=== PATIENT | female | born 1960 | race American Indian/Alaskan Native ===

== ENCOUNTER 2017-02-13 10:49 | Outpatient (CLI) | payer OTHER ==
--- NOTE | 2017-02-13 11:42 | Mammography Report ---
BILATERAL MAMMOGRAM: FINDINGS: The breast tissue is heterogeneously dense, which could obscure detection of small masses (approximately 50%-75% glandular). No mass, distortion, suspicious calcification, or skin change is seen. No significant changes compared to prior studies in 2015 and 2016. CAD was utilized. IMPRESSION: Negative mammogram. There is no mammographic evidence of malignancy. RECOMMENDATION: Follow-up per ACS guidelines. BI-RADS CATEGORY: 1 = Negative ACR BI-RADS MAMMOGRAPHIC CODES: 0 = Needs additional imaging evaluation; 1 = Negative; 2 = Benign; 3 = Probably benign; 4 = Suspicious; 5 = Malignant; 6 = Known biopsy-proven malignancy COMMENT: 1. Dense breast tissue, i.e., adenosis, fibrocystic changes, etc., may obscure an underlying neoplasm. 2. Approximately 10% of cancers are not detected with mammography. 3. A negative mammography report should not delay biopsy if a clinically suspicious mass is present. COMMENT: Patient follow-up letters are generated in [employer].
== END 2017-02-13 10:50 | disposition home or self-care (01) ==
LOC: MAMMO 10:49
PROVIDERS: ATTEND Family Medicine Adult Medicine
DX: Z12.31 Encounter for screening mammogram for malignant neoplasm of breast (principal)
CPT/HCPCS: 77067; G0202

== ENCOUNTER 2017-11-21 12:32 | Outpatient (CLI) | payer OTHER ==
--- NOTE | 2017-11-21 14:35 | Cat Scan Report ---
CRANIAL CT SCAN: History: Headaches. Serial contiguous axial images were obtained through the cranium. Intravenous contrast material was not administered. The ventricles are normal in size and appearance. There is no mass effect or midline shift. No areas of abnormally increased or decreased attenuation are seen. No mass lesion is seen. The mastoid air cells and visualized portions of the sinuses are normal. IMPRESSION: Cranial CT scan within normal limits.
--- NOTE | 2017-11-22 07:26 | Cat Scan Report ---
CT SINUSES WITHOUT CONTRAST: HISTORY: Headache, acute upper respiratory infection. TECHNIQUE: Helical CT with sagittal and coronal reformatted images. The visualized sinus groups are well aerated. The ostiomeatal units are normal and patent bilaterally. The nasal septum is midline. The nasal turbinates are symmetrical. There is no evidence of shena bullosa or sinusitis. CONCLUSION: Negative sinus CT.
== END 2017-11-21 12:33 | disposition home or self-care (01) ==
LOC: CT 12:32
PROVIDERS: ATTEND Family Medicine Adult Medicine
DX: J06.9 Acute upper respiratory infection, unspecified (principal); R51 Headache
CPT/HCPCS: 70450; 70486

== ENCOUNTER 2018-02-14 14:16 | Outpatient (CLI) | payer OTHER ==
--- NOTE | 2018-02-17 11:36 | Mammography Report ---
BILATERAL DIGITAL SCREENING MAMMOGRAM with CAD: 02/14/18 14:16:00 CLINICAL: Routine screening. COMPARISON:02/13/17 FINDINGS: The breasts are heterogeneously dense, which may or small masses. A left asymmetry on the MLO view requires additional imaging.No architectural distortion or suspicious calcifications.The right breast is negative. IMPRESSION: Left asymmetry requiring further workup. BI-RADS CATEGORY: 0 -- Additional Imaging Evaluation Required RECOMMENDATION: Recall for left mediolateral , spot magnification CC and MLO views and left breast ultrasound if needed. ACR BI-RADS MAMMOGRAPHIC CODES: 0 = Needs additional imaging evaluation; 1 = Negative; 2 = Benign; 3 = Probably benign; 4 = Suspicious; 5 = Malignant; 6 = Known biopsy-proven malignancy COMMENT: 1. Dense breast tissue, i.e., adenosis, fibrocystic changes, etc., may obscure an underlying neoplasm. 2. Approximately 10% of cancers are not detected with mammography. 3. A negative mammography report should not delay biopsy if a clinically suspicious mass is present. COMMENT: Patient follow-up letters are generated via our [employer] application.
== END 2018-02-14 14:17 | disposition home or self-care (01) ==
LOC: MAMMO 14:16
PROVIDERS: ATTEND Family Medicine Adult Medicine
DX: Z12.31 Encounter for screening mammogram for malignant neoplasm of breast (principal)
CPT/HCPCS: 77067

== ENCOUNTER 2018-02-18 16:09 | Emergency (ER) | payer OTHER ==
[2018-02-18 16:24] VITALS: BP 152/81
--- NOTE | 2018-02-18 17:07 | Emergency Department Report ---
Blank Doc - Documentation Documentation: Patient is a 57-year-old black female who fell 3 days ago struck her right knee. Patient states she went to see her primary doctor who gives him Motrin 800s but she still been A suggested she come get an x-ray. Patient is able to bear weight but does have some generalized tenderness and swelling to the right knee. X-ray of be performed.
--- NOTE | 2018-02-18 19:02 | XRay Report ---
FINAL REPORT PROCEDURE: XR KNEE 3V RT TECHNIQUE: RIGHT knee radiographs, AP, lateral and oblique views. CPT 12558 HISTORY: Fall injury pain. COMPARISON: No prior studies are available for comparison. FINDINGS: Fracture (s) and/or Dislocation(s): None . Alignment: Normal . Joint space(s): Mild medial compartment narrowing. Small patellar osteophytes. Small joint effusion. Soft tissues: Normal . Bone mineralization: Mild osteopenia. Foreign bodies: None . IMPRESSION: Mild degenerative change. Small joint effusion. No radiographic evidence of displaced fracture.
--- NOTE | 2018-02-18 19:14 | Emergency Department Report ---
ED Extremity Problem HPI - General Chief complaint: Extremity Injury, Lower Stated complaint: FALL/KNEE PAIN Time Seen by Provider: 02/18/18 16:31 Source: patient Mode of arrival: Ambulatory Limitations: No Limitations - History of Present Illness Initial comments: Patient is a 57-year-old black female who fell 3 days ago struck her right knee. Patient states she went to see her primary doctor who gives him Motrin 800s but she still been A suggested she come get an x-ray. Patient is able to bear weight but does have some generalized tenderness and swelling to the right knee. Severity scale (0 -10): 6 Quality: aching Consistency: constant Improves with: nothing Worsens with: weight bearing, walking, palpation - Related Data Previous Rx's Medication Instructions Recorded Last Taken Type traMADol [Ultram] 50 mg PO Q6HR PRN #14 tablet 02/18/18 Unknown Rx Allergies Allergy/AdvReac Type Severity Reaction Status Date / Time No Known Allergies Allergy Unverified 02/14/16 08:08 ED Review of Systems ROS: Stated complaint: FALL/KNEE PAIN Other details as noted in HPI Comment: All other systems reviewed and negative ED Past Medical Hx - Past Medical History Hx Hypertension: Yes - Surgical History Past Surgical History?: No - Social History Smoking Status: Never Smoker Substance Use Type: None - Medications Home Medications: Home Medications Medication Instructions Recorded Confirmed Last Taken Type traMADol [Ultram] 50 mg PO Q6HR PRN #14 tablet 02/18/18 Unknown Rx ED Physical Exam - General Limitations: No Limitations General appearance: alert, in no apparent distress - Head Head exam: Present: atraumatic, normocephalic - Eye Eye exam: Present: normal appearance - ENT ENT exam: Present: mucous membranes moist - Neck Neck exam: Present: normal inspection - Respiratory Respiratory exam: Present: normal lung sounds bilaterally. Absent: respiratory distress, wheezes - Cardiovascular Cardiovascular Exam: Present: regular rate, normal rhythm. Absent: systolic murmur, diastolic murmur, rubs, gallop - GI/Abdominal GI/Abdominal exam: Present: soft, normal bowel sounds - Extremities Exam Extremities exam: Present: normal inspection, full ROM, tenderness (generalized knee tenderness. There is a small abrasion over the patella) - Back Exam Back exam: Present: normal inspection - Neurological Exam Neurological exam: Present: alert, oriented X3 - Psychiatric Psychiatric exam: Present: normal affect, normal mood - Skin Skin exam: Present: warm, dry, intact, normal color. Absent: rash ED Course Vital Signs 02/18/18 16:21 Temperature 98.3 F Pulse Rate 52 L Respiratory 18 Rate Blood Pressure 152/81 O2 Sat by Pulse 100 Oximetry ED Medical Decision Making - Radiology Data Radiology results: report reviewed Patient has a small effusion is no fracture present - Medical Decision Making 57-year-old black female who struck her knee while falling. Patient has a small effusion secondary to the fall. There is no fracture present patient will be given pain meds Rice therapy discharge home. Critical care attestation.: If time is entered above; I have spent that time in minutes in the direct care of this critically ill patient, excluding procedure time. ED Disposition Clinical Impression: Knee contusion Qualifiers: Encounter type: initial encounter Laterality: right Qualified Code(s): S80.01XA - Contusion of right knee, initial encounter Disposition: - TO HOME OR SELFCARE Is pt being admited?: No Does the pt Need Aspirin: No Condition: Stable Instructions: Knee Pain (ED) Prescriptions: traMADol [Ultram] 50 mg PO Q6HR PRN #14 tablet PRN Reason: Pain Referrals: PRIMARY CARE, [Primary Care Provider] - 3-5 Days
== END 2018-02-18 19:25 | disposition home or self-care (01) ==
LOC: ED 16:09
DX: S80.01XA Contusion of right knee, initial encounter (principal); I10 Essential (primary) hypertension; W19.XXXA Unspecified fall, initial encounter; Y93.89 Activity, other specified; Y92.89 Other specified places as the place of occurrence of the external cause; Y99.8 Other external cause status
CPT/HCPCS: 99283

== ENCOUNTER 2018-02-21 09:40 | Outpatient (CLI) | payer OTHER ==
--- NOTE | 2018-02-21 10:31 | Mammography Report ---
Left mammogram: Patient recalled for asymmetry on screening exam of February 14. Additional compression imaging fails to confirm the persistence of an asymmetry in the findings appear generally unchanged from prior examination in February 2017. Impression: Stable left breast pattern. Recommendation: Annual mammogram followup. BI-RADS CATEGORY: 1 = Negative ACR BI-RADS MAMMOGRAPHIC CODES: 0 = Needs additional imaging evaluation; 1 = Negative; 2 = Benign; 3 = Probably benign; 4 = Suspicious; 5 = Malignant; 6 = Known biopsy-proven malignancy COMMENT: 1. Dense breast tissue, i.e., adenosis, fibrocystic changes, etc., may obscure an underlying neoplasm. 2. Approximately 10% of cancers are not detected with mammography. 3. A negative mammography report should not delay biopsy if a clinically suspicious mass is present.
== END 2018-02-21 09:41 | disposition home or self-care (01) ==
LOC: MAMMO 09:40
PROVIDERS: ATTEND Family Medicine Adult Medicine
DX: R92.8 Other abnormal and inconclusive findings on diagnostic imaging of breast (principal)

== ENCOUNTER 2019-02-16 08:23 | Outpatient (CLI) | payer OTHER ==
--- NOTE | 2019-02-16 11:02 | Mammography Report ---
BILATERAL DIGITAL SCREENING MAMMOGRAM with CAD : 02/16/19 08:23:00 CLINICAL: Routine screening. COMPARISON:02/14/18 FINDINGS: The breasts are heterogeneously dense, which may obscure small masses. No mass, architectural distortion or suspicious calcifications. IMPRESSION: No mammographic evidence of malignancy. BI-RADS CATEGORY: 2 -- Benign RECOMMENDATION: Routine mammographic screening in one year. COMMENT: Patient follow-up letters are generated by our [employer] application.
== END 2019-02-16 08:24 | disposition home or self-care (01) ==
LOC: SPVWC 08:23
PROVIDERS: ATTEND Family Medicine Adult Medicine
DX: Z12.31 Encounter for screening mammogram for malignant neoplasm of breast (principal); I10 Essential (primary) hypertension
CPT/HCPCS: 77067